=== PATIENT | female | born 1930 | race Caucasian/White ===

== ENCOUNTER → 2016-11-11 | Outpatient (CLI) | payer MEDICARE, BC | END | disposition short-term general hospital (02) | LOC: CLRHEU 10:10 → CLNEPH 10:10 | DX: R52 Pain, unspecified (principal) ==

== ENCOUNTER → 2016-12-29 | Outpatient (CLI) | payer MEDICARE, BC | END | disposition short-term general hospital (02) | LOC: CLRHEU 12:13 | DX: M35.3 Polymyalgia rheumatica (principal); M13.812 Other specified arthritis, left shoulder; M13.811 Other specified arthritis, right shoulder; M13.852 Other specified arthritis, left hip; M13.851 Other specified arthritis, right hip ==